=== PATIENT | male | born 1965 | race Caucasian/White ===

== ENCOUNTER 2018-10-05 23:52 | Emergency (ER) | payer MEDICARE, MEDICAID ==
[2018-10-06] MEDS: HYDROmorphONE 1 MG/ML SYG IM (03:23)
[2018-10-06] MEDS: ONDANSETRON (ODT) 4 MG TAB ODT (03:24)
== END 2018-10-06 05:27 | disposition home or self-care (01) ==
LOC: E/R 23:52
DX: R51 Headache (principal); G89.29 Other chronic pain; I10 Essential (primary) hypertension; Z76.0 Encounter for issue of repeat prescription; Z86.73 Personal history of transient ischemic attack (TIA), and cerebral infarction without residual deficits
CPT/HCPCS: 70450; 96372; 99285-25

== ENCOUNTER 2018-10-31 12:20 | Emergency (ER) | payer MEDICARE, MEDICAID ==
[2018-10-31] MEDS: ONDANSETRON (ODT) 4 MG TAB ODT (14:10)
[2018-10-31] MEDS: KETOROLAC 60 MG INJ IM (14:11)
== END 2018-10-31 15:04 | disposition home or self-care (01) ==
LOC: FTE 12:20
DX: J06.9 Acute upper respiratory infection, unspecified (principal); I10 Essential (primary) hypertension; Z86.73 Personal history of transient ischemic attack (TIA), and cerebral infarction without residual deficits
CPT/HCPCS: 71045; 87400; 96372; 99284-25

== ENCOUNTER 2018-12-14 08:10 | Emergency (ER) | payer MEDICARE, MEDICAID | END 2018-12-14 10:18 | disposition home or self-care (01) | LOC: FTE 08:10 | DX: M54.9 Dorsalgia, unspecified (principal); I10 Essential (primary) hypertension; Z86.73 Personal history of transient ischemic attack (TIA), and cerebral infarction without residual deficits | CPT/HCPCS: 72040; 72220; 99284-25 ==